=== PATIENT | male | born 1995 | race Caucasian/White ===

== ENCOUNTER 2019-10-24 06:21 | Emergency (ER) | payer MEDICAID ==
[~2019-10-24] VITALS: Ht 180.3 cm; Wt 141.5 kg
[2019-10-24] MEDS ORDERED: BACITRACIN ZINC OINT UDPKT TOP ONE (07:00)
[2019-10-24] MEDS ORDERED: LIDOCAINE 1%/EPI 1:100,000 10 ML VIAL IJ ONE (07:00)
[2019-10-24] MEDS ORDERED: TETANUS, DIPHTHERIA, PERTUSSIS VAC/PF 0.5ML (>7YR OLD) IM ONE (07:00)
[2019-10-24] MEDS ORDERED: IBUPROFEN 800MG TABLET PO ONE (07:30)
[2019-10-24] MEDS ORDERED: CEPHALEXIN 250MG CAPSULE PO ONE (07:30)
[2019-10-24] MEDS ORDERED: LIDOCAINE HCL/EPINEPHRINE 1%-EPI 1:100,000 20 ML VIAL INFIL NR (07:30)
[2019-10-24 09:30] VITALS: BP 148/82
== END 2019-10-24 10:02 | disposition home or self-care (01) ==
LOC: ER 06:49
DX: S51.811A Laceration without foreign body of right forearm, initial encounter (principal); W45.8XXA Other foreign body or object entering through skin, initial encounter; Y93.89 Activity, other specified; Y92.89 Other specified places as the place of occurrence of the external cause; Y99.8 Other external cause status
CPT/HCPCS: 12004; 90471; 90715; 99283; J3490